=== PATIENT | female | born 1990 | race Caucasian/White ===

== ENCOUNTER 2016-11-30 13:35 | Inpatient (IN) | payer OTHER ==
[~2016-11-30] VITALS: Ht 167.6 cm; Wt 49.4 kg
--- NOTE | ~2016-11-30 | EKG ---
[place], [place] ELECTROCARDIOGRAM REPORT NAME: JOSE LLOYD UNIT #: [id number] ROOM: [id number] DOCTOR: CALLI DOYLE MD BIRTHDATE: [birth year] DOS: 11/30/2016 TIME: 18:44 Sinus arrhythmia with rate around 71, otherwise normal electrocardiogram. CALLI DOYLE MD CM:EKGRPT:ELECTROCARDIOGRAM REPORT [id number] CALLI DOYLE MD
[2016-11-30 14:30] VITALS: BP 117/70
[2016-11-30 14:56] LABS: BILIRUBIN NEGATIVE (NEGATIVE); BLOOD 3+ (NEGATIVE); CLARITY SL CLOUDY (CLEAR); COLOR YELLOW (YELLOW); GLUCOSE NEGATIVE (NEGATIVE); KETONE TRACE (NEGATIVE); LEUKO ESTERASE NEGATIVE (NEGATIVE); NITRITE NEGATIVE (NEGATIVE); PH 8.5 (5.0-9.0); PROTEIN 1+ (NEGATIVE); UROBILINOGEN 0.2 E.U./dl (0.2-1.0)
[2016-11-30 15:02] LABS: BASO % 0.4 % (0.0-1.0); EOS # 0.1 10*3/uL (0.0-0.4); EOS % 1.7 % (1.0-4.0); HEMATOCRIT 37.7 % (37.0-47.0); HEMOGLOBIN 12.5 g/dl (12.0-16.0); LYMPH # 1.7 10*3/uL (1.3-4.4); LYMPH % 32.8 % (27.0-41.0); MEAN CELL VOLUME 88.9 fl (81.0-99.0); MEAN CORPUSCULAR HGB 29.5 pg (27.0-31.0); MEAN CORPUSCULAR HGB CONC 33.2 g/dl (33.0-37.0); MEAN PLATELET VOLUME 9.8 fl (9.6-12.3); MONO # 0.4 10*3/uL (0.1-1.0); MONO % 6.9 % (3.0-9.0); PLATELET COUNT AUTOMATED 352 10*3/uL (130-400); RED BLOOD COUNT 4.24 10*6/uL (4.10-5.10); RED CELL DISTRI WIDTH 13.2 % (0-14.5); WHITE BLOOD COUNT 5.2 10*3/uL (4.8-10.8)
[2016-11-30 15:03] LABS: URINE AMPHETAMINES < 1000 (1000ng/ml); URINE BARBITURATES < 200 (200ng/ml); URINE COCAINE > 300 (300ng/ml)
[2016-11-30 15:10] LABS: BACTERIA 2+; RBC 41-50 rbc/hpf (0-2); URINE REFLEX COMMENT YES (NO); WBC 0-2 wbc/hpf (0-5)
[2016-11-30 15:11] LABS: PROTHROMBIN TIME 10.6 SECONDS (9.0-12.4)
[2016-11-30 15:22] LABS: BILIRUBIN, TOTAL 0.3 mg/dl (0.2-1.0); BUN 17 mg/dl (7-24); CARBON DIOXIDE 27 mmol/L (21-32); CHLORIDE 104 mmol/L (98-107); EST GLOM FILT AFRICAN AMERICAN > 60 ml/min; GLUCOSE 85 mg/dL (65-99); POTASSIUM 4.6 mmol/L (3.5-5.1); SGOT/AST 44 IU/L (3-35); SGPT/ALT 67 U/L (12-78); SODIUM 141 mmol/L (136-145); TOTAL PROTEIN 9.1 gm/dL (6.4-8.2)
[2016-11-30 15:24] LABS: ALKALINE PHOSPHATASE 92 U/L (45-117)
[2016-11-30 16:00] VITALS: BP 121/66
[2016-11-30 20:00] VITALS: BP 124/65
[2016-12-01] VITALS: BP 104/55
[2016-12-01 08:00] VITALS: BP 92/54
[2016-12-01 12:00] VITALS: BP 116/55
[2016-12-01 16:00] VITALS: BP 132/65
[2016-12-01 20:00] VITALS: BP 121/55
[2016-12-02 00:16] VITALS: BP 109/55
[2016-12-02 03:59] VITALS: BP 112/60
[2016-12-02 08:00] VITALS: BP 94/50
[2016-12-02 12:00] VITALS: BP 116/56
[2016-12-02 16:00] VITALS: BP 116/46
[2016-12-02 20:00] VITALS: BP 108/49
[2016-12-03] VITALS: BP 114/66; BP 122/50
[2016-12-03 08:00] VITALS: BP 104/52
[2016-12-03] MEDS ORDERED: ZOFRAN 4 MG ED2 TAB PO (10:14)
[2016-12-03] MEDS ORDERED: ATARAX,VISTARIL50 MG PO (10:14)
[2016-12-03] MEDS ORDERED: ROPINIROLE HYD0.5 MG PO (10:14)
== END 2016-12-03 10:51 | disposition home or self-care (01) | DRG 897 ==
LOC: 4E 13:35
PROVIDERS: Internal Medicine
DX: F11.23 Opioid dependence with withdrawal (principal); F33.9 Major depressive disorder, recurrent, unspecified; R82.71 Bacteriuria; F41.9 Anxiety disorder, unspecified; B19.20 Unspecified viral hepatitis C without hepatic coma; F14.10 Cocaine abuse, uncomplicated; F17.210 Nicotine dependence, cigarettes, uncomplicated; R74.0 Nonspecific elevation of levels of transaminase and lactic acid dehydrogenase [LDH]; F12.10 Cannabis abuse, uncomplicated; N80.9 Endometriosis, unspecified; Z71.6 Tobacco abuse counseling; Z59.0 Homelessness; Z81.1 Family history of alcohol abuse and dependence; Z84.89 Family history of other specified conditions; Z82.49 Family history of ischemic heart disease and other diseases of the circulatory system

== ENCOUNTER 2017-01-19 13:28 | Inpatient (IN) | payer OTHER ==
[~2017-01-19] VITALS: Ht 167.6 cm; Wt 50.9 kg
[~2017-01-19 13:28] MED LIST: ATARAX,VISTARIL50 MG PO; ROPINIROLE HYD0.5 MG PO; ZOFRAN 4 MG ED2 TAB PO
[2017-01-19 13:46] VITALS: BP 120/74
[2017-01-19 14:06] LABS: BILIRUBIN NEGATIVE (NEGATIVE); BLOOD 3+ (NEGATIVE); CLARITY SL CLOUDY (CLEAR); COLOR YELLOW (YELLOW); GLUCOSE NEGATIVE (NEGATIVE); KETONE TRACE (NEGATIVE); LEUKO ESTERASE NEGATIVE (NEGATIVE); NITRITE NEGATIVE (NEGATIVE); PH 5.5 (5.0-9.0); PROTEIN TRACE (NEGATIVE); UROBILINOGEN 0.2 E.U./dl (0.2-1.0)
[2017-01-19 14:18] LABS: URINE AMPHETAMINES < 1000 (1000ng/ml); URINE BARBITURATES < 200 (200ng/ml); URINE COCAINE > 300 (300ng/ml)
[2017-01-19 14:23] LABS: EPITHELIAL CELLS 15-20; MUCOUS 1+; URINE REFLEX COMMENT YES (NO)
[2017-01-19 14:42] LABS: BASO % 0.5 % (0.0-1.0); EOS # 0.2 10*3/uL (0.0-0.4); EOS % 2.6 % (1.0-4.0); HEMATOCRIT 37.8 % (37.0-47.0); HEMOGLOBIN 12.2 g/dl (12.0-16.0); LYMPH # 2.7 10*3/uL (1.3-4.4); LYMPH % 46.1 % (27.0-41.0); MEAN CORPUSCULAR HGB 29.7 pg (27.0-31.0); MEAN CORPUSCULAR HGB CONC 32.3 g/dl (33.0-37.0); MEAN PLATELET VOLUME 9.7 fl (9.6-12.3); MONO # 0.4 10*3/uL (0.1-1.0); NEUT # 2.6 10*3/uL (2.3-7.9); NEUT % 44.5 % (47.0-73.0); PLATELET COUNT AUTOMATED 291 10*3/uL (130-400); RED BLOOD COUNT 4.11 10*6/uL (4.10-5.10); RED CELL DISTRI WIDTH 12.8 % (0-14.5); WHITE BLOOD COUNT 5.8 10*3/uL (4.8-10.8)
[2017-01-19 14:50] VITALS: BP 107/60
[2017-01-19 14:54] LABS: PROTHROMBIN TIME 10.3 SECONDS (9.0-12.4)
[2017-01-19 14:57] LABS: ALBUMIN 3.5 gm/dl (3.1-4.5); ALKALINE PHOSPHATASE 86 U/L (45-117); BILIRUBIN, TOTAL 0.2 mg/dl (0.2-1.0); BUN 8 mg/dl (7-24); CARBON DIOXIDE 26 mmol/L (21-32); CHLORIDE 102 mmol/L (98-107); EST GLOM FILT AFRICAN AMERICAN > 60 ml/min; GLUCOSE 73 mg/dL (65-99); POTASSIUM 3.9 mmol/L (3.5-5.1); SGOT/AST 58 IU/L (3-35); SGPT/ALT 72 U/L (12-78); SODIUM 139 mmol/L (136-145); TOTAL PROTEIN 8.5 gm/dL (6.4-8.2)
[2017-01-19 16:00] VITALS: BP 98/61
[2017-01-19 20:00] VITALS: BP 109/58
[2017-01-20] VITALS: BP 98/56
[2017-01-20 04:00] VITALS: BP 94/48
[2017-01-20 08:00] VITALS: BP 100/58
[2017-01-20 12:00] VITALS: BP 108/58
[2017-01-20 16:00] VITALS: BP 108/57
[2017-01-20 20:00] VITALS: BP 117/53
[2017-01-21] VITALS: BP 105/48
[2017-01-21 08:00] VITALS: BP 102/66
[2017-01-21 12:00] VITALS: BP 116/50
== END 2017-01-21 15:00 | disposition left against medical advice (07) | DRG 894 ==
LOC: ED 13:28 → 4E 14:05 → EDHOLD 14:05 → 4E 14:15
PROVIDERS: Emergency Medicine; Hospitalist
DX: F11.23 Opioid dependence with withdrawal (principal); F32.9 Major depressive disorder, single episode, unspecified; B18.2 Chronic viral hepatitis C; G25.81 Restless legs syndrome; F17.200 Nicotine dependence, unspecified, uncomplicated; F14.10 Cocaine abuse, uncomplicated; N80.9 Endometriosis, unspecified; Z53.21 Procedure and treatment not carried out due to patient leaving prior to being seen by health care provider; F41.9 Anxiety disorder, unspecified; F19.10 Other psychoactive substance abuse, uncomplicated; Z82.49 Family history of ischemic heart disease and other diseases of the circulatory system; Z81.1 Family history of alcohol abuse and dependence